=== PATIENT | female | born 1960 | race Caucasian/White ===

== ENCOUNTER 2016-04-27 11:51 | Day surgery (SDC) | payer OTHER ==
[~2016-04-27] VITALS: Ht 157.5 cm; Wt 93.5 kg
[~2016-04-27 11:51] MED LIST: CEPH-443 PO; CLIN-73 PO; MUPI22OI2 TOP; POLY10DR19 BOTH EYES
[2016-04-27] MEDS ORDERED: ACYC400T2 PO (13:39)
[2016-04-27 13:59] VITALS: Ht 157.5 cm; Wt 93.5 kg
[2016-04-27 14:36] VITALS: BP 107/66; PULSE 76; RESP 18
[2016-04-27 14:42] VITALS: BP 122/74; PULSE 74; RESP 18
--- NOTE | 2016-04-28 08:04 | GILP ---
DATE OF PROCEDURE: 04/27/2016 PREOPERATIVE DIAGNOSIS: Screening colonoscopy. POSTOPERATIVE DIAGNOSIS: Few scattered diverticula, otherwise normal. DESCRIPTION OF PROCEDURE: The patient was put in left lateral decubitus after obtaining informed co nsent. Patient received 3 mg IV Versed and 75 mcg of fentanyl. I advanced an Olympus video colonos cope all the way to cecum. Appendiceal opening and ileocecal valve were identified. Cecum, ascendi ng colon, transverse colon, descending colon, sigmoid colon all thoroughly examined and showed very few scattered diverticula that were very small, very few, and otherwise normal colonic mucosa. Rect um was normal including retroflexion and no other abnormality noted even on rectal exam. IMPRESSION: Essentially normal study except for a few diverticula. RECOMMENDATIONS: 1. I advise a high fiber diet. 2. Follow up with primary MD. 3. Repeat colonoscopy in 10 years. Dictated By: TREMAINE ABBOTT/PATRICK Conf#: [id number] DID#: [id number] CC: John Brewster;*EndCC*
== END 2016-04-27 16:18 | disposition home or self-care (01) ==
LOC: GIL 11:51
PROVIDERS: ATTEND Internal Medicine
DX: Z12.11 Encounter for screening for malignant neoplasm of colon (principal); K57.90 Diverticulosis of intestine, part unspecified, without perforation or abscess without bleeding

== ENCOUNTER 2016-08-20 14:51 | Emergency (ER) | payer OTHER ==
[~2016-08-20] VITALS: Wt 97.4 kg
[~2016-08-20 14:51] MED LIST changes: +ACYC400T2 PO; -CEPH-443 PO; -CLIN-73 PO; -MUPI22OI2 TOP
[2016-08-20] MEDS ORDERED: traMADol 50 MG TAB PO ONE (16:00)
[2016-08-20] MEDS ORDERED: IBUPROFEN 600 MG TAB PO ONE (16:00)
[2016-08-20 16:01] LABS: URINE BLOOD (Dip) POC Negative (NEGATIVE)
--- NOTE | 2016-08-20 16:35 | RADRPT ---
PROCEDURE: CT Abdomen and Pelvis without contrast. CLINICAL INDICATION: Left lower quadrant abdominal pain. Bilateral oophorectomy 1 month ago. TECHNIQUE: Multiple contiguous axial CT images of the abdomen and pelvis were obtained without the administration of intravenous contrast. Coronal and sagittal reconstructions were also performed. CTDIvol (mGy): 23.52; Total Exam DLP (mGy-cm): 1358.23. One or more of the following dose reduction techniques were utilized: - Automated exposure control. - Adjustment of the mA and/or kV according to patient size. - Use of iterative reconstruction technique. COMPARISON: None. FINDINGS: Limited imaging of the lower thorax demonstrates scattered basilar atelectatic changes. The liver and spleen are homogeneous in density. The liver measures approximately 20.0 cm in a cran iocaudal dimension. The liver is low in attenuation compatible with fatty infiltration. The gallblad joe, pancreas and right adrenal gland are unremarkable. There is a 1.8 cm left adrenal nodule measu ring below 10 HU in density compatible with an adrenal adenoma. The kidneys are symmetric in size. There are no nephroureteral stones. There is no hydronephrosis o r abnormal perinephric inflammation. The abdominal aorta is normal in caliber. Atherosclerotic calcification is present. There is no per iaortic / retroperitoneal lymphadenopathy. The stomach and small intestines are unremarkable. Sigmoid diverticulosis is observed. The appendi x is normal. There are no focal inflammatory changes of the mesentery. There is no mesenteric lymp hadenopathy. There is no ascites. The bladder, uterus and adnexa are unremarkable. There is no free pelvic fluid. There is no evidenc e of pelvic fluid collection. There is no pelvic sidewall or inguinal lymphadenopathy. Degenerative changes of the lower thoracic spine are present. Body wall soft tissues are unremarkab le aside from mild edema within the deep subcutaneous soft tissues of the left lower anterior abdomi nal wall. IMPRESSION: No evidence of abdominopelvic mass, lymphadenopathy or acute inflammatory pathology. Surgical changes compatible with bilateral oophorectomy without abnormality of the surgical bed. Th ere is no pelvic fluid collection. Enlarged fatty liver. Sigmoid diverticulosis. No evidence of diverticulitis. Small left adrenal adenoma. RPTAT: HLST .Isis Mora MD, MD Date Time Electronically viewed and signed by .Isis Mora MD, on 08/20/2016 16:35 .T/
[2016-08-20] MEDS ORDERED: TRAM50TA2 PO (16:40)
[2016-08-20] MEDS ORDERED: IBUP-1542 PO (16:40)
--- NOTE | 2016-08-20 16:47 | ERD ---
ER Documentation Chief Complaint Date/Time DATE: 08/20/16 TIME: 16:45 Chief Complaint OVARIAN CYST SURG 4 WEEKS AGO WOUND REDNESS HPI This 56-year-old female presents for evaluation for wound check from a removal of ovarian cyst and oophorectomy 4 weeks ago. She this was performed in [place]. She has no fevers, vomiting. She also some left lower quadrant abdominal pain worse with movement and feels like something is tearing. She has no bleeding or discharge or urinary complaints. She was unable to see her surgeon and her primary doctors referred her to the emergency room for evaluation of her wound ROS All systems reviewed and are negative except as per history of present illness. Medications Home Meds Active Scripts Ibuprofen* (Motrin*) 600 Mg Tab, 600 MG PO Q6, #20 TAB Prov:NICOLAS SHARMA MD 08/20/16 Tramadol HCl (Tramadol HCl) 50 Mg Tablet, 50 MG PO Q4 Y for PAIN, #15 TAB Prov:NICOLAS SHARMA MD 08/20/16 Polymyxin B Sulfate-TMP* (Polymyxin B-TMP Eye Drops*) 10 Ml Drops, 1 DROP BOTH EYES QID for 7 Days, EA Prov:GLORIA VITALE NP 03/25/15 Reported Medications Acyclovir* (Acyclovir*) 400 Mg Tablet, 400 MG PO DAILY, TAB 04/27/16 Allergies Allergies: Coded Allergies: No Known Allergy (Unverified , 03/25/15) PMhx/Soc History of Surgery: Yes () Anesthesia Reaction: No Hx Neurological Disorder: No Hx Respiratory Disorders: Yes (childhood asthma) Hx Cardiac Disorders: Yes (Hyperlipidemia ) Hx Psychiatric Problems: No Hx Miscellaneous Medical Probl: No Hx Alcohol Use: No Hx Substance Use: No Hx Tobacco Use: No Physical Exam Vitals Vital Signs Date Time Temp Pulse Resp B/P Pulse Ox O2 Delivery O2 Flow Rate FiO2 08/20/16 14:53 99.0 103 18 164/93 99 Physical Exam Const: [] Alert, [id number], morbidly obese Head: Atraumatic Eyes: Normal Conjunctiva ENT: Normal External Ears, Nose and Mouth. Neck: Full range of motion..~ No meningismus. Resp: Clear to auscultation bilaterally Cardio: Regular rate and rhythm, no murmurs Abd: Soft, there is some tenderness in the left lower abdomen without palpable masses or erythema. There are no surgical scars in the area of pain. Amaury, non distended. Normal bowel sounds. There are healing port scars with some superficial skin irritation but no erythema, warmth or discharge or dehiscence. Skin: No petechiae or rashes Back: No midline or flank tenderness Ext: No cyanosis, or edema Neur: Awake and alert Psych: Normal Mood and Affect Results 24 hrs Laboratory Tests Test 08/20/16 16:03 Bedside Urine pH (LAB) 5.5 Bedside Urine Protein (LAB) Negative Bedside Urine Glucose (UA) Negative Bedside Urine Ketones (LAB) Negative Bedside Urine Blood Negative Bedside Urine Nitrite (LAB) Negative Bedside Urine Leukocyte Esterase (L Negative Current Medications Medications (Trade) Dose Ordered Sig/Rico Route PRN Reason Start Time Stop Time Status Last Admin Dose Admin Tramadol HCl (Ultram) 50 mg ONCE ONCE PO 08/20/16 16:00 08/20/16 16:01 DC 08/20/16 16:00 Ibuprofen (Motrin) 600 mg ONCE ONCE PO 08/20/16 16:00 08/20/16 16:01 DC 08/20/16 16:00 Procedures/MDM Urine is negative for leukocytes, nitrites, glucose and hemoglobin. CT abdomen pelvis without contrast shows incidental adrenal adenoma but no acute findings such as abscess, or diverticulitis. There is no evidence of renal stones. There is no acute findings. Patient was given ibuprofen and Tylenol for pain. Patient presents with postoperative pain in the left lower quadrant after oophorectomy. The wound does not appear infected and appears to be local irritation possibly from the glue or tape. Patient will be discharged home a short course of tramadol and ibuprofen and instructed to follow-up with her surgeon and primary doctor for further evaluation and management. Recommending further testing and monitoring for the incidental adrenal adenoma lesion. Patient is advised to return for fevers, vomiting, new worsening symptoms as directed after instructions. Postoperative pain is uncertain but may be musculoskeletal there is no evidence of acute complications requiring further intervention currently Departure Diagnosis: Primary Impression: Post-op pain Additional Impression: Encounter for wound re-check Condition: Stable Patient Instructions: Post Op Wound Check, Pain Additional Instructions: CT shows no acute abnormalities or complications of surgery. Wound redness appears to be irritation without signs of infection see primary doctor surgeon for recheck. Wound does not appear infected. There is an incidental possible adenoma of adrenal gland. Recommend follow-up with primary doctor possibly repeat study to monitor and further testing. Recheck otherwise for fevers, vomiting, new worsening symptoms NICOLAS SHARMA MD August 20, 2016 16:47
== END 2016-08-20 17:12 | disposition home or self-care (01) ==
LOC: FTE 14:51
DX: G89.18 Other acute postprocedural pain (principal)
CPT/HCPCS: 74176; 81003; Z7502; Z7610

== ENCOUNTER 2016-11-18 02:44 | Emergency (ER) | payer OTHER ==
[~2016-11-18] VITALS: Ht 157.5 cm; Wt 94.5 kg
[~2016-11-18 02:44] MED LIST changes: +IBUP-1542 PO; +TRAM50TA2 PO
[2016-11-18 03:00] VITALS: Ht 157.5 cm; Wt 94.5 kg
[2016-11-18 07:37] LABS: ADD UMIC YES; UR ASCORBIC ACID NEGATIVE (NEGATIVE); UR BILIRUBIN (Dip) NEGATIVE (NEGATIVE); UR BLOOD (Dip) NEGATIVE (NEGATIVE); UR CLARITY CLEAR (CLEAR); UR COLOR YELLOW (YELLOW); UR GLUCOSE (Dip) NEGATIVE (NEGATIVE); UR KETONES (Dip) NEGATIVE (NEGATIVE); UR LEUKOCYTE ESTERASE (Dip) 1+ Leu/ul (NEGATIVE); UR MUCUS FEW /HPF (NONE SEEN); UR NITRITE (Dip) NEGATIVE (NEGATIVE); UR RBC 2 /HPF (0-5); UR SPECIFIC GRAVITY (Dip) 1.026 (1.003-1.030); UR TOTAL PROTEIN (Dip) NEGATIVE (NEGATIVE); UR UROBILINOGEN (Dip) NEGATIVE (NEGATIVE)
[2016-11-18] MEDS ORDERED: METGEL45 TOP (08:01)
[2016-11-18] MEDS ORDERED: CEPH-443 PO (08:01)
--- NOTE | 2016-11-18 10:12 | ERD ---
ER Documentation Chief Complaint Date/Time DATE: 11/18/16 TIME: 10:08 Chief Complaint c/o vaginal itching and burning x1 week HPI 56-year-old female patient with no significant past medical history presents to the ED complaining of vaginal itching and burning with urination that started about 1 week ago. Reports that she had a total hysterectomy, and oophorectomy in April 2016. Reports that she tried applying Vagisil and Monistat without relief of the symptoms. Denies having any vaginal discharge or vaginal bleeding. Denies being sexually active. States that she had a normal Pap smear earlier this year prior to her surgery. Denies any fever, chills, pelvic pain, nausea, vomiting, abdominal pain, hematuria. ROS All systems reviewed and are negative except as per history of present illness. Medications Home Meds Active Scripts Metronidazole* (Metrogel*) 0.75% -45 Gram Gel, 1 APPLIC TOP BID, #1 TUB Prov:JOSE VEGA PA-C 11/18/16 Cephalexin* (Keflex*) 500 Mg Capsule, 500 MG PO QID for 7 Days, CAP Prov:JOSE VEGA PA-C 11/18/16 Ibuprofen* (Motrin*) 600 Mg Tab, 600 MG PO Q6, #20 TAB Prov:NICOLAS SHARMA MD 08/20/16 Tramadol HCl (Tramadol HCl) 50 Mg Tablet, 50 MG PO Q4 Y for PAIN, #15 TAB Prov:NICOLAS SHARMA MD 08/20/16 Polymyxin B Sulfate-TMP* (Polymyxin B-TMP Eye Drops*) 10 Ml Drops, 1 DROP BOTH EYES QID for 7 Days, EA Prov:GLORIA VITALE NP 03/25/15 Reported Medications Acyclovir* (Acyclovir*) 400 Mg Tablet, 400 MG PO DAILY, TAB 04/27/16 Allergies Allergies: Coded Allergies: No Known Allergy (Unverified , 11/18/16) PMhx/Soc History of Surgery: Yes () Anesthesia Reaction: No Hx Neurological Disorder: No Hx Respiratory Disorders: Yes (childhood asthma) Hx Cardiac Disorders: Yes (Hyperlipidemia ) Hx Psychiatric Problems: No Hx Miscellaneous Medical Probl: Yes (eczema , herpes ) Hx Alcohol Use: No Hx Substance Use: No Hx Tobacco Use: No Smoking Status: Never smoker Physical Exam Vitals Vital Signs Date Time Temp Pulse Resp B/P Pulse Ox O2 Delivery O2 Flow Rate FiO2 11/18/16 03:00 97.3 86 20 145/95 98 Physical Exam Const: Gpm-sza-jwdafcwoy, well-nourished. In no acute distress. Head: Atraumatic, normocephalic Eyes: Normal Conjunctiva without injection. No purulent discharge. ENT: Normal external ear, nose. Moist oropharynx without tonsillar exudates. Non -erythematous pharynx. Uvula midline. No drooling. No trismus. Neck: No cervical midline tenderness. Full range of motion. No meningismus. No cervical lymphadenopathy. No JVD. Resp: Clear to auscultation bilaterally. No wheezing, rhonchi, rales, or crackles. No accessory muscle use. No retractions. Cardio: Regular rate and rhythm. No murmurs, rubs or gallops. Abd: Soft, nontender, non distended. Normal bowel sounds. No palpable masses. No rebound tenderness. No guarding. Negative McBurney's point. Negative psoas sign. Negative obturator sign. Skin: No petechiae or rashes Back: No midline tenderness. No CVA tenderness. Ext: No cyanosis, or edema. Neur: Awake and alert. Normal gait. Normal coordination. Psych: Normal Mood and Affect Results 24 hrs Laboratory Tests Test 11/18/16 07:00 Urine Color YELLOW Urine Clarity CLEAR Urine pH 5.0 Urine Specific [place] 1.026 Urine Ketones NEGATIVEmg/dL Urine Nitrite NEGATIVEmg/dL Urine Bilirubin NEGATIVEmg/dL Urine Urobilinogen NEGATIVEmg/dL Urine Leukocyte Esterase 1+Phoebe/ul Urine Microscopic RBC 2/HPF Urine Microscopic WBC 7/HPF Urine Mucus FEW/HPF Urine Hemoglobin NEGATIVEmg/dL Urine Glucose NEGATIVEmg/dL Urine Total Protein NEGATIVEmg/dl Procedures/MDM 56-year-old female patient with no significant past history presents the ED complaining of vaginal itching and burning with urination. Patient is afebrile and nontoxic-appearing. Patient has normal vital signs. A urinalysis was ordered to further evaluate patient. Patient has 1+ leukocyte esterase and white blood cells of 8. Patient likely has a urinary tract infection and due to patient's itchiness, patient will be prescribed MetroGel and is strictly instructed to follow-up with her creative art therapist. Patient does not have any vaginal discharge or vaginal bleeding, there is no indication for a pelvic exam at this time. Patient had a hysterectomy and oophorectomy. Low suspicion for symptomatic anemia, ectopic , sepsis, PID, appendicitis, ovarian torsion, tubo-ovarian abscess, surgical abdomen, STDs, or other emergent conditions. Patient to follow up with NUCLEAR SCIENTIST in 2 days for further evaluation and treatment. Patient is to return sooner to the ED for any worsening symptoms. Patient's questions were answered. Patient understood and agreed with discharge plan. Departure Diagnosis: Primary Impression: Vaginal itching Additional Impression: Dysuria Condition: Stable Patient Instructions: Dysuria, Urinary Tract Infections in Women Referrals: [facility] YOU HAVE RECEIVED A MEDICAL SCREENING EXAM AND THE RESULTS INDICATE THAT YOU DO NOT HAVE A CONDITION THAT REQUIRES URGENT TREATMENT IN THE EMERGENCY DEPARTMENT. FURTHER EVALUATION AND TREATMENT OF YOUR CONDITION CAN WAIT UNTIL YOU ARE SEEN IN YOUR DOCTORS OFFICE WITHIN THE NEXT 1-2 DAYS. IT IS YOUR RESPONSIBILITY TO MAKE AN APPOINTMENT FOR FOLOW-UP CARE. IF YOU HAVE A PRIMARY DOCTOR --you should call your primary doctor and schedule an appointment IF YOU DO NOT HAVE A PRIMARY DOCTOR YOU CAN CALL OUR PHYSICIAN REFERRAL HOTLINE AT IF YOU CAN NOT AFFORD TO SEE A PHYSICIAN YOU CAN CHOSE FROM THE FOLLOWING [facility] [address] [facility]. [facility] [address] [facility]. [facility] [address] [facility] [address] [facility] [address] [facility]. [facility]. [address] [facility]. [facility] YOU HAVE RECEIVED A MEDICAL SCREENING EXAM AND THE RESULTS INDICATE THAT YOU DO NOT HAVE A CONDITION THAT REQUIRES URGENT TREATMENT IN THE EMERGENCY DEPARTMENT. FURTHER EVALUATION AND TREATMENT OF YOUR CONDITION CAN WAIT UNTIL YOU ARE SEEN IN YOUR DOCTORS OFFICE WITHIN THE NEXT 1-2 DAYS. IT IS YOUR RESPONSIBILITY TO MAKE AN APPOINTMENT FOR FOLOW-UP CARE. IF YOU HAVE A PRIMARY DOCTOR --you should call your primary doctor and schedule and appointment IF YOU DO NOT HAVE A PRIMARY DOCTOR YOU CAN CALL OUR PHYSICIAN REFERRAL HOTLINE AT . IF YOU CAN NOT AFFORD TO SEE A PHYSICIAN YOU CAN CHOSE FROM THE FOLLOWING [facility] INSTITUTIONS: [facility] [address] [place] [address] [facility] [address] [place] [address] [facility] [address] [place] [address] [facility] Additional Instructions: Call your primary care doctor TOMORROW for an appointment during the next 1-2 days for a referral to see an NUCLEAR SCIENTIST.See the doctor sooner or return here if your condition worsens before your appointment time. JOSE VEGA PA-C Nov 18, 2016 10:11 JOSE VEGA PA-C Nov 18, 2016 10:11
== END 2016-11-18 08:41 | disposition home or self-care (01) ==
LOC: FTE 02:44
DX: N89.8 Other specified noninflammatory disorders of vagina (principal); R30.0 Dysuria
CPT/HCPCS: 81001; Z7502; 99284

== ENCOUNTER 2018-04-20 07:34 | Emergency (ER) | payer OTHER ==
[~2018-04-20] VITALS: Ht 157.5 cm; Wt 96.4 kg
[~2018-04-20 07:34] MED LIST changes: +CEPH-443 PO; +METGEL45 TOP
[2018-04-20 07:38] VITALS: Ht 157.5 cm; Wt 96.4 kg
[2018-04-20] MEDS ORDERED: DIPHENHYDRAMINE 50 MG INJ IV STA (08:01)
[2018-04-20] MEDS ORDERED: KETOROLAC 30 MG INJ IV STA (08:01)
[2018-04-20] MEDS ORDERED: SOD CHLORIDE 0.9% 1,000 ML IV STA (08:01)
[2018-04-20] MEDS ORDERED: METOCLOPRAMIDE 10 MG INJ IV STA (08:01)
[2018-04-20] MEDS ORDERED: NAPR-985 PO (09:27)
[2018-04-20] MEDS ORDERED: HYDR-4011 PO (09:27)
[2018-04-20] MEDS ORDERED: POLY10DR19 BOTH EYES (09:27)
--- NOTE | 2018-04-20 09:37 | ERD ---
ER Documentation Chief Complaint Chief Complaint LI, back pain and eyes red & watering x2 days HPI 58-year-old female presenting with headache and back pain. Patient states her eyes are red and watering. She denies any fevers. Denies any recent falls. Denies numbness or tingling. Able to Tanesha without difficulty. Has a history of eczema. NKDA. But has sensitivity to erythromycin. Surgical history denies. Social history ovarian cyst. ROS All systems reviewed and are negative except as per history of present illness. Medications Home Meds Active Scripts Polymyxin B Sulfate-TMP* (Polymyxin B-TMP Eye Drops*) 10 Ml Drops, 1 DROP BOTH EYES QID for 7 Days, EA Prov:GENE HAYES PA-C 04/20/18 Naproxen* (Naprosyn*) 500 Mg Tablet, 500 MG PO BID PRN for PAIN AND/OR INFLAMMATION, #30 TAB Prov:GENE HAYES PA-C 04/20/18 Hydrocodone/Acetaminophen ([place] 5-325 Tablet) 1 Each Tablet, 1 TAB PO Q6H PRN for PAIN, #7 TAB Prov:GENE HAYES PA-C 04/20/18 Metronidazole* (Metrogel*) 0.75% -45 Gram Gel, 1 APPLIC TOP BID, #1 TUB Prov:JOSE VEGA PA-C 11/18/16 Cephalexin* (Keflex*) 500 Mg Capsule, 500 MG PO QID for 7 Days, CAP Prov:JOSE VEGA PA-C 11/18/16 Ibuprofen* (Motrin*) 600 Mg Tab, 600 MG PO Q6, #20 TAB Prov:NICOLAS SHARMA MD 08/20/16 Tramadol HCl (Tramadol HCl) 50 Mg Tablet, 50 MG PO Q4 PRN for PAIN, #15 TAB Prov:NICOLAS SHARMA MD 08/20/16 Polymyxin B Sulfate-TMP* (Polymyxin B-TMP Eye Drops*) 10 Ml Drops, 1 DROP BOTH EYES QID for 7 Days, EA Prov:GLORIA VITALE NP 03/25/15 Reported Medications Acyclovir* (Acyclovir*) 400 Mg Tablet, 400 MG PO DAILY, TAB 04/27/16 Allergies Allergies: Coded Allergies: No Known Allergy (Unverified , 11/18/16) PMhx/Soc History of Surgery: Yes (,ovary removal) Anesthesia Reaction: No Hx Neurological Disorder: No Hx Respiratory Disorders: Yes (childhood asthma) Hx Cardiac Disorders: Yes (Hyperlipidemia ) Hx Psychiatric Problems: No Hx Miscellaneous Medical Probl: Yes (eczema , herpes ) Hx Alcohol Use: No Hx Substance Use: No Hx Tobacco Use: No Smoking Status: Never smoker FmHx Family History: No diabetes, No coronary disease, No other Physical Exam Vitals Vital Signs Date Temp Pulse Resp B/P (MAP) Pulse Ox O2 O2 Flow FiO2 Time Delivery Rate 04/20/18 97.8 92 18 163/91 100 07:38 (115) Physical Exam GENERAL: The patient is well-appearing, well-nourished, in no acute distress HEENT: Atraumatic. Conjunctivae are pink. Pupils equal, round, and reactive to light. There is no scleral icterus. Tympanic membranes clear bilaterally. Oropharynx clear. CHEST: Clear to auscultation bilaterally. There are no rales, wheezes or rhonchi. HEART: Regular rate and rhythm. No murmurs, clicks, rubs or gallops. BACK: No midline or flank tenderness. Tender to palpation to paraspinous muscles. No midline pain. EXTREMITIES: Equal pulses bilaterally. There is no peripheral clubbing, cyanosis or edema. No focal swelling or erythema. Full range of motion. Grossly neurovascularly intact. NEUROLOGIC: Alert and oriented. Cranial nerves II through XII intact. Motor strength in all 4 extremities with 5 out of 5 strength. Sensation grossly intact. Normal speech and gait. Babinski negative. DTR 2+ throughout. SKIN: There is no apparent rash or petechiae. The skin is warm and dry. Results 24 hrs Laboratory Tests Test 04/20/18 08:24 Urine Color YELLOW Urine Clarity SLIGHTLY CLOUDY Urine pH 5.0 Urine Specific [place] 1.030 Urine Ketones NEGATIVE mg/dL Urine Nitrite NEGATIVE mg/dL Urine Bilirubin NEGATIVE mg/dL Urine Urobilinogen NEGATIVE mg/dL Urine Leukocyte Esterase TRACE Phoebe/ul Urine Microscopic RBC 1 /HPF Urine Microscopic WBC 1 /HPF Urine Calcium Oxalate Crystals FEW /HPF Urine Bacteria FEW /HPF Urine Mucus MODERATE /HPF Urine Hemoglobin NEGATIVE mg/dL Urine Glucose NEGATIVE mg/dL Urine Total Protein NEGATIVE mg/dl Current Medications Medications Dose Sig/Rico Start Time Status Last (Trade) Ordered Route PRN Stop Time Admin Dose Reason Admin Sodium 1,000 ml @ Q1H STAT 04/20/18 DC 04/20/18 Chloride 1,000 mls/hr IV 08:01 08:21 04/20/18 09:00 10 mg ONCE STAT 04/20/18 DC 04/20/18 Metoclopramid IV 08:01 08:22 e HCl 04/20/18 08:03 (Reglan) Ketorolac 30 mg ONCE STAT 04/20/18 DC 04/20/18 Tromethamine IV 08:01 08:22 (Toradol) 04/20/18 08:03 25 mg ONCE STAT 04/20/18 DC 04/20/18 Diphenhydrami IV 08:01 08:22 ne HCl 04/20/18 08:03 (Benadryl) Procedures/MDM ER course: Urinalysis negative. 1 L normal saline with Toradol Benadryl and Reglan given ED. On reevaluation patient is feeling dramatically better. MDM: 58-year-old female presents with back pain. Patient also had headache which resolved with medication. Patient stated that she had some congestion noted her eyes so I will prophylactically treat for possible bacterial conjunctivitis. I have low suspicion for visual deficits. Discharged stricter precautions and told to follow-up with primary care. All questions answered discharge Departure Diagnosis: Primary Impression: Back pain Condition: Stable Patient Instructions: Back Pain (Acute Or Chronic), Conjunctivitis, Bacterial Referrals: [facility] YOU HAVE RECEIVED A MEDICAL SCREENING EXAM AND THE RESULTS INDICATE THAT YOU DO NOT HAVE A CONDITION THAT REQUIRES URGENT TREATMENT IN THE EMERGENCY DEPARTMENT. FURTHER EVALUATION AND TREATMENT OF YOUR CONDITION CAN WAIT UNTIL YOU ARE SEEN IN YOUR DOCTORS OFFICE WITHIN THE NEXT 1-2 DAYS. IT IS YOUR RESPONSIBILITY TO MAKE AN APPOINTMENT FOR [facility]. IF YOU HAVE A PRIMARY DOCTOR --you should call your primary doctor and schedule an appointment IF YOU DO NOT HAVE A PRIMARY DOCTOR YOU CAN CALL OUR PHYSICIAN REFERRAL HOTLINE AT IF YOU CAN NOT AFFORD TO SEE A PHYSICIAN YOU CAN CHOSE FROM THE FOLLOWING [facility] [address] [facility]. [facility] [address] [facility] [address] [facility]. [facility] [address] [facility] [address] [facility]. [facility] [address] Additional Instructions: FOLLOW UP WITH YOUR PRIMARY CARE PHYSICIAN TOMORROW.Return to this facility if you are not improving as expected. GENE HAYES PA-C Apr 20, 2018 09:37
[2018-04-20 09:39] VITALS: BP 129/79; PULSE 78; RESP 18
== END 2018-04-20 09:40 | disposition home or self-care (01) ==
LOC: FTE 07:34
DX: M54.9 Dorsalgia, unspecified (principal)
CPT/HCPCS: 81001; 96361; 96374; 96375; J1200; J1885; J2765; J7030; Z7502